=== PATIENT | female | born 1955 | race Caucasian/White ===

== ENCOUNTER → 2019-01-04 | Outpatient (REF) | payer MEDICARE, OTHER ==
[~2019-01-04] MED LIST: ASPIRIN 81 LOW81 MG; ASPIRIN EC81 MG PO; CHONDR PO; CO Q 10100 MG PO; COQ-10200 MG PO; CRESTOR10 MG OR; CYMBALTA30 MG PO; DARVOCET N-100100 - OR; EQL IBUPROFEN200 M1 PO; FOSAMAX PLUS PO; GABAPENTIN300 MG PO; GLUCO PO; HYDROCO/APAP1 TA9 PO; HYDROXYCHLOR200 M1 PO; LEVOTHYROXIN50 MCG PO; LIPITOR10 M1 PO; LORATADINE10 M1 PO; LORTAB 5 OR; LORTAB 5 PO; LORTAB 5/3255 MG PO; LOSARTAN POT50 MG PO; LYRICA150 MG PO; MULTIVITAL-M PO; MULTIVITAMIN PO; NEURONTIN300 MG PO; NONI PO; PAIN RELIEF325 MG PO; PERCOCET 10/31 COMBO PO; PRILOSEC20 MG/CAP PO; SIMVASTATIN10 MG PO; SIMVASTATIN20 MG PO; SINGULAIR10 MG PO; TYLENOL 500MG TAB PO; TYLENOL650 MG PO; VIT C/ACEROL500 M1 PO; VITAMIN D35000 UNIT PO; VITAMIN K2100 MCG
[2019-01-04 09:29] VITALS: BP 146/100
== END | disposition home or self-care (01) ==
LOC: PAIN/MGT 08:55
PROVIDERS: ATTEND Anesthesiology Pain Medicine
DX: Z09 Encounter for follow-up examination after completed treatment for conditions other than malignant neoplasm (principal)

== ENCOUNTER 2020-10-30 08:35 | Day surgery (SDC) | payer MEDICARE ==
[~2020-10-30 08:35] MED LIST changes: +AMOXICILLIN500 MG PO; +ASPIRIN81 MG PO; +ELDERBERRY PO; +EQUATE SEVERE SINUS PO; +FISH OIL1000 MG PO; +K2 PLUS D31 TAB PO; +TRAMADOL HCL50 MG PO
[2020-10-30 11:02] VITALS: BP 155/78
== END 2020-10-30 11:25 | disposition home or self-care (01) ==
LOC: ENDO 08:35 → ORM 11:15 → ENDO 11:15
PROVIDERS: ATTEND Surgery
PROC: 0DBH8ZX Excision of Cecum, Via Natural or Artificial Opening Endoscopic, Diagnostic (ICD-10-PCS; principal; 2020-10-30)
PROC: 0DBL8ZX Excision of Transverse Colon, Via Natural or Artificial Opening Endoscopic, Diagnostic (ICD-10-PCS; 2020-10-30)
PROC: 0DBN8ZX Excision of Sigmoid Colon, Via Natural or Artificial Opening Endoscopic, Diagnostic (ICD-10-PCS; 2020-10-30)
DX: Z12.11 Encounter for screening for malignant neoplasm of colon (principal); D12.0 Benign neoplasm of cecum; D12.3 Benign neoplasm of transverse colon; D12.5 Benign neoplasm of sigmoid colon; K57.30 Diverticulosis of large intestine without perforation or abscess without bleeding; K64.8 Other hemorrhoids; I10 Essential (primary) hypertension; Z86.010 Personal history of colon polyps; Z20.828 Contact with and (suspected) exposure to other viral communicable diseases

== ENCOUNTER 2021-02-28 13:24 | Emergency (ER) | payer MEDICARE ==
[~2021-02-28 13:24] MED LIST changes: +COZAAR50 MG PO; -K2 PLUS D31 TAB PO; -LOSARTAN POT50 MG PO; +VITAMIN K PO
[2021-02-28] MEDS ORDERED: BIOTIN5000 MCG PO (13:49)
[2021-02-28] MEDS ORDERED: FOLIC ACID1 MG PO (13:50)
[2021-02-28] MEDS ORDERED: TRAMADOL HCL50 MG PO (13:51)
[2021-02-28] MEDS ORDERED: PLAVIX75 MG PO (13:51)
[2021-02-28] MEDS ORDERED: CRESTOR40 MG PO (13:51)
[2021-02-28 14:23] VITALS: BP 134/66
[2021-04-30] MEDS ORDERED: TRAMADOL HCL50 MG PO (11:55)
[2021-04-30] MEDS ORDERED: LYRICA150 MG PO (11:56)
[2021-05-23] MEDS ORDERED: TRAMADOL HCL50 MG PO (12:45)
[2021-06-18] MEDS ORDERED: [UNRECOGNIZED DRUG - OTHER] PO (14:22)
[2021-06-18] MEDS ORDERED: WOMEN'S VITA PO (14:24)
[2021-06-18] MEDS ORDERED: BEETS (14:25)
[2021-06-18] MEDS ORDERED: CRESTOR40 MG PO (14:26)
[2021-06-18] MEDS ORDERED: VITAMIN B-121000 MCG PO (14:27)
[2021-06-18] MEDS ORDERED: VIT B-COMPLX100 MG IJ (14:27)
[2021-06-18] MEDS ORDERED: VITAMIN B1250 MG PO (14:28)
[2021-06-18] MEDS ORDERED: VITAMIN B6100 MG PO (14:28)
[2021-06-18] MEDS ORDERED: VITAMIN E400 UNIT PO (14:29)
[2021-06-18] MEDS ORDERED: ALPHA LIPOIC A200 M1 PO (14:30)
[2021-06-18] MEDS ORDERED: TUMERIC (14:34)
[2021-06-18] MEDS ORDERED: [UNRECOGNIZED DRUG - OTHER] (14:42)
[2021-06-20] MEDS ORDERED: TYLENOL325 M2 PO (14:04)
== END 2021-02-28 14:28 | disposition home or self-care (01) ==
LOC: ED 13:24
DX: S90.31XA Contusion of right foot, initial encounter (principal); I10 Essential (primary) hypertension; Z95.5 Presence of coronary angioplasty implant and graft; W20.8XXA Other cause of strike by thrown, projected or falling object, initial encounter; Y92.009 Unspecified place in unspecified non-institutional (private) residence as the place of occurrence of the external cause; Z79.82 Long term (current) use of aspirin; Z79.02 Long term (current) use of antithrombotics/antiplatelets

== ENCOUNTER 2022-01-08 07:18 | Day surgery (SDC) | payer MEDICARE ==
[~2022-01-08] VITALS: Ht 170.2 cm; Wt 68.0 kg
[~2022-01-08 07:18] MED LIST changes: +ALPHA LIPOIC A200 M1 PO; +BEETS; +BIOTIN5000 MCG PO; +CRESTOR40 MG PO; +FOLIC ACID1 MG PO; +PLAVIX75 MG PO; +TUMERIC; +TYLENOL325 M2 PO; +VIT B-COMPLX100 MG IJ; +VITAMIN B-121000 MCG PO; +VITAMIN B1250 MG PO; +VITAMIN B6100 MG PO; +VITAMIN E400 UNIT PO; +WOMEN'S VITA PO; +[UNRECOGNIZED DRUG - OTHER]; +[UNRECOGNIZED DRUG - OTHER] PO
[2022-01-08 09:31] VITALS: BP 142/70
== END 2022-01-09 09:55 | disposition home or self-care (01) ==
LOC: ORM 07:18
PROVIDERS: ATTEND Physical Medicine & Rehabilitation
DX: M47.816 Spondylosis without myelopathy or radiculopathy, lumbar region (principal); G89.4 Chronic pain syndrome
CPT/HCPCS: Q9967

== ENCOUNTER 2022-03-19 07:27 | Day surgery (SDC) | payer MEDICARE ==
[~2022-03-19] VITALS: Ht 170.2 cm; Wt 66.7 kg
[2022-03-19] MEDS ORDERED: CYMBALTA20 MG PO (08:10)
[2022-03-19] MEDS ORDERED: DITROPAN5 MG/TA1 PO (08:11)
[2022-03-19] MEDS ORDERED: HYDROXYCHLOR200 M1 PO (08:11)
[2022-03-19 10:35] VITALS: BP 122/82
== END 2022-03-19 10:15 | disposition home or self-care (01) ==
LOC: ORM 07:27
PROVIDERS: ATTEND Physical Medicine & Rehabilitation
DX: M47.816 Spondylosis without myelopathy or radiculopathy, lumbar region (principal)

== ENCOUNTER 2022-04-30 07:50 | Day surgery (SDC) | payer MEDICARE ==
[~2022-04-30 07:50] MED LIST changes: +AMOX-POT CLA PO; +CYMBALTA20 MG PO; +DITROPAN5 MG/TA1 PO; +IBUPROFEN200 MG PO; +PROPRANOLOL120 MG PO
[2022-04-30 09:53] VITALS: BP 129/62
== END 2022-04-30 10:10 | disposition home or self-care (01) ==
LOC: ORM 07:50
PROVIDERS: ATTEND Physical Medicine & Rehabilitation
DX: M47.816 Spondylosis without myelopathy or radiculopathy, lumbar region (principal); M54.50 Low back pain, unspecified; M25.50 Pain in unspecified joint; M62.838 Other muscle spasm; Z79.891 Long term (current) use of opiate analgesic; G89.4 Chronic pain syndrome
CPT/HCPCS: J3490

== ENCOUNTER 2022-09-07 12:57 | Emergency (ER) | payer MEDICARE ==
[~2022-09-07] VITALS: Ht 170.2 cm; Wt 73.0 kg
[2022-09-07 13:41] LABS: HEMATOCRIT 37.6 % (37.0-47.0); HEMOGLOBIN 12.4 g/dl (12.0-16.0); IMMATURE GRANULOCYTES 0.5 % (0.0-5.0); MEAN CELL VOLUME 92.4 fL CALC (80.0-100.0); MEAN CORPUSCULAR HGB 30.5 pG CALC (26.0-32.0); NEUT# 2.33 thou/uL (2.00-7.15); RED BLOOD COUNT 4.07 mill/uL (4.20-5.60); RED CELL DISTRI WIDTH 12.1 % (11.5-15.5)
[2022-09-07 13:52] LABS: ALBUMIN 4.1 g/dL (3.2-5.0); ALKALINE PHOSPHATASE 74 u/l (38-126); ANION GAP 12 (6-22 (CALC)); BILIRUBIN, TOTAL 0.3 mg/dL (0.0-1.4); BUN 10 mg/dL (8-23); BUN/CREATININE RATIO 14 (12-20 (CALC)); CARBON DIOXIDE 26 mmol/l (22-30); CHLORIDE 108 mmol/l (95-108); CREATININE 0.7 mg/dL (0.5-1.0); GFR FOR AFR.AMER. > 60 ML/MIN (>=60 (CALC)); GFR OTHER RACES > 60 ML/MIN (>=60 (CALC)); POTASSIUM 3.9 mmol/l (3.5-5.1); SGOT/AST 40 u/l (9-36); SODIUM 141 mmol/l (137-146)
[2022-09-07 17:37] VITALS: BP 151/80
== END 2022-09-07 17:57 | disposition home or self-care (01) ==
LOC: ED 12:57
PROVIDERS: Family Medicine
DX: U07.1 COVID-19 (principal); R05.9 Cough, unspecified; R50.9 Fever, unspecified; R07.89 Other chest pain; I10 Essential (primary) hypertension

== ENCOUNTER 2023-01-07 13:41 | Emergency (ER) | payer MEDICARE ==
[~2023-01-07] VITALS: Ht 170.2 cm; Wt 76.7 kg
[2023-01-07] MEDS ORDERED: SULFASALAZIN500 M1 PO (14:09)
[2023-01-07] MEDS ORDERED: MEDDOSEPAK PO (18:37)
[2023-01-07 18:46] VITALS: BP 137/68
== END 2023-01-07 18:51 | disposition home or self-care (01) ==
LOC: ED 13:41
DX: M25.572 Pain in left ankle and joints of left foot (principal); I10 Essential (primary) hypertension